=== PATIENT | male | born 1945 | race African-American/Black ===

== ENCOUNTER 2019-10-07 18:03 | Inpatient (IN) | payer MEDICARE ==
[~2019-10-07] VITALS: Ht 175.3 cm; Wt 92.7 kg
[2019-10-07] MEDS ORDERED: HYDROCODONE/ACETAMINOPHEN 5/325MG TABLET PO STA (18:46)
[2019-10-07 18:59] LABS: BASOPHILS % 0.5 % (0.0-2.0); EOSINOPHILS % 2.1 % (0.0-5.0); HEMOGLOBIN. 14.7 g/dL (14.0-18.0); LYMPHOCYTES % 16.6 % (20.0-50.0); MEAN CORPUSCULAR HEMOGLOBIN 32.4 pg (28.0-32.0); MEAN CORPUSCULAR VOLUME 92.7 fL (80.0-94.0); MEAN PLATELET VOLUME 8.1 fl (7.4-10.4); NEUTROPHILS % 69.8 % (40.0-76.0); PLATELET 201 x1000/uL (130-400); RED BLOOD CELL COUNT 4.53 mill/uL (4.7-6.1); RED CELL DISTRIBUTION WIDTH 13.3 % (11.6-14.6)
[2019-10-07] MEDS ORDERED: KETOROLAC 15MG/ML VIAL IV ONE (19:00)
[2019-10-07 19:06] LABS: CHLORIDE 110 mEq/L (98-107)
[2019-10-08 09:27] VITALS: BP 146/73
[2019-10-08] MEDS ORDERED: HYDRALAZINE 20MG/ML VIAL IV PRN (11:15)
[2019-10-08] MEDS ORDERED: MORPHINE SULFATE 2 MG/ML CPJ (NOT FOR IM USE) IV PRN (11:15)
[2019-10-08] MEDS ORDERED: ONDANSETRON HCL 4MG/2ML INJ IV PRN (11:15)
[2019-10-08] MEDS ORDERED: IPRATROPIUM/ALBUTEROL 0.5-3(2.5)MG/3ML NEB HHN PRN (11:15)
[2019-10-08 12:00] VITALS: BP 188/91
[2019-10-08 16:28] LABS: BASOPHILS % 0.4 % (0.0-2.0); EOSINOPHILS % 2.1 % (0.0-5.0); LYMPHOCYTES % 12.9 % (20.0-50.0); MEAN CORPUSCULAR HEMOGLOBIN 32.5 pg (28.0-32.0); MEAN CORPUSCULAR VOLUME 93.1 fL (80.0-94.0); MEAN PLATELET VOLUME 8.2 fl (7.4-10.4); MONOCYTES % 11.2 % (2.0-8.0); NEUTROPHILS % 73.4 % (40.0-76.0); PLATELET 191 x1000/uL (130-400); RED BLOOD CELL COUNT 4.29 mill/uL (4.7-6.1); RED CELL DISTRIBUTION WIDTH 13.2 % (11.6-14.6)
[2019-10-08 16:35] LABS: CHLORIDE 107 mEq/L (98-107)
[2019-10-08 17:26] VITALS: BP 158/82
== END 2019-10-08 18:50 | disposition home or self-care (01) | DRG 552 ==
LOC: ER 18:03 → 6WST 10-08 01:21 → EDBEDREQSVC 10-08 01:29 → EDBEDREQDT 10-08 01:29 → EDBEDREQ 10-08 01:29 → EDBEDREQTM 10-08 01:29 → ENRESERV 10-08 07:39 → ER 10-08 09:09
PROVIDERS: ADMIT Internal Medicine; ATTEND Internal Medicine
DX: M48.061 Spinal stenosis, lumbar region without neurogenic claudication (principal); I10 Essential (primary) hypertension; G89.29 Other chronic pain; M25.78 Osteophyte, vertebrae; M47.26 Other spondylosis with radiculopathy, lumbar region; M51.16 Intervertebral disc disorders with radiculopathy, lumbar region; Z91.81 History of falling
CPT/HCPCS: 36415; 72131; 72148; 80048; 80053; 84484; 85025; 93005; 93306; 97162; 99285; J0360; J1885